=== PATIENT | male | born 2000 | race Caucasian/White ===

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

== ENCOUNTER 2022-11-11 06:34 | Emergency (ER) | payer OTHER ==
[2022-11-11 06:41] VITALS: RESP 18
[2022-11-11] MEDS ORDERED: diphenhydrAMINE 50 MG/ML 1 ML VIAL IVP STA (07:05)
[2022-11-11] MEDS ORDERED: DEXAMETHASONE SOD PHOSPHATE 10 MG/ML 1 ML VIAL IVP STA (07:05)
[2022-11-11] MEDS ORDERED: KETOROLAC 15 MG/ML 1 ML VIAL IVP STA (07:05)
--- NOTE | 2022-11-11 07:09 | ED ---
Neck Injury/Pain HPI - General Chief Complaint: Neck Pain/Injury Stated Complaint: Migraine, Neck Pain, Jaw tension Time Seen by Provider: 11/11/22 06:52 Source: patient, family, RN notes reviewed Mode of arrival: ambulatory Limitations: no limitations - History of Present Illness Initial Comments: This is a 21-year-old male who presents to the emergency department for neck pain and a headache. States that 4 days ago he developed left-sided neck pain that seems to be going up towards the ear. Also reports minor stiffness. Denies any fevers. He went to a chiropractor with no relief in symptoms. He took Aleve and a muscle relaxant which was not helpful. He has had problems with similar neck pain in the past, but states that it does not usually last this long. Denies any fevers, chills, or upper respiratory symptoms. His mom believes that he may be having a migraine, which he has had before and states that the symptoms feel similar. Denies any fevers, chills, sore throat, cough, dyspnea, chest pain, palpitations, abdominal pain, nausea, vomiting, or diarrhea. MD Complaint: neck pain Onset/Timin -: days(s) - Related Data Home Medications Medication Instructions Recorded Confirmed cloNIDine HCL [Catapres] 0.2 mg PO HS 04/25/14 10/31/16 ALPRAZolam [Xanax] 0.25 mg PO BID PRN 10/31/16 10/31/16 FLUoxetine HCL [PROzac] 40 mg PO HS 10/31/16 10/31/16 Methylphenidate HCl [Concerta] 54 mg PO QAM 10/31/16 10/31/16 guanFACINE HCL [Intuniv] 2 mg PO QAM 10/31/16 10/31/16 Previous Rx's Medication Instructions Recorded Ketorolac [Toradol] 10 mg PO Q6HR PRN #12 tab 11/11/22 Allergies Allergy/AdvReac Type Severity Reaction Status Date / Time No Known Allergies Allergy Verified 11/11/22 06:41 Review of Systems ROS Statement: Those systems with pertinent positive or pertinent negative responses have been documented in the HPI. ROS Other: All systems not noted in ROS Statement are negative. Past Medical History Past Medical History: No Reported History Additional Past Medical History / Comment(s): [employer] History of Any Multi-Drug Resistant Organisms: None Reported Additional Past Surgical History / Comment(s): TEAR DUCT SURGERY - AGE 4 Past Psychological History: ADD/ADHD, Depression, PTSD Smoking Status: Never smoker Past Alcohol Use History: None Reported Past Drug Use History: None Reported General Exam Limitations: no limitations General appearance: alert, in no apparent distress Head exam: Present: atraumatic, normocephalic, normal inspection ENT exam: Present: normal oropharynx, mucous membranes moist, TM's normal bilaterally, normal external ear exam Neck exam: Present: normal inspection, tenderness (Over the left trapezius muscle), full ROM. Absent: meningismus, lymphadenopathy Respiratory exam: Present: normal lung sounds bilaterally. Absent: respiratory distress, wheezes, rales, rhonchi, stridor Cardiovascular Exam: Present: regular rate, normal rhythm, normal heart sounds. Absent: systolic murmur, diastolic murmur, rubs, gallop, clicks Neurological exam: Present: alert, oriented X3, CN II-XII intact Psychiatric exam: Present: normal affect, normal mood Skin exam: Present: warm, dry, intact, normal color. Absent: rash Course Vital Signs 11/11/22 06:37 Temperature 97.8 F Pulse Rate 80 Respiratory 18 Rate Blood Pressure 100/68 O2 Sat by Pulse 97 Oximetry Medical Decision Making - Medical Decision Making This is a 21-year-old male who presents to the emergency department for neck pain. Was pt. sent in by a medical professional or institution? @ -No Did you speak to anyone other than the patient for history? @ -His mother provided the information regarding what medications he has been taking. Did you review nursing and triage notes? @ -Yes, and I agree, it is accurate with regards to the patient's symptoms. Were old charts reviewed? @ -No Differential Diagnosis? @ -Differential Neck Pain: Fracture, dislocation, contusion, strain, DDD, disc herniation, this is not meant to be an all-inclusive list. EKG interpreted by me (3pts min.)? @ -Not obtained X-rays interpreted by me (1pt min.)? @ -Not obtained CT interpreted by me (1pt min.)? @ -Not obtained U/S interpreted by me (1pt. min.)? @ -Not obtained What testing was considered but not performed? (CT, X-rays, U/S, labs)? Why? @ -There was consideration of an x-ray, however because he did not sustain any injuries and this was essentially an exacerbation of pain he has had before, this was avoided. What meds were considered but not given? Why? @ -None Did you discuss the management of the patient with other professionals? @ -No Did you reconcile home meds? @ -No Was smoking cessation discussed for >3mins.? @ -No Was critical care preformed (if so, how long)? @ -No Were there social determinants of health that impacted care today? How? (Homelessness, low income, unemployed, alcoholism, drug addiction, transportation, low edu. Level, literacy, decrease access to med. care, prison, rehab)? @ -No Was there de-escalation of care discussed even if they declined? (Discuss DNR or withdrawal of care, Hospice)? @ -No What co-morbidities impacted this encounter? (DM, HTN, Smoking, COPD, CAD, Cancer, CVA, Hep., AIDS, mental health diagnosis, sleep apnea, morbid obesity)? @ -Autism Was patient admitted / discharged? @ -Discharged. Symptoms more so consistent with a musculoskeletal process due to the tenderness over the trapezius muscle with associated tightness. Patient is also reproducible and increases with ROM. Discussed with his mother that we can treat him with Toradol, Decadron, and Benadryl. This will have an impact on musculoskeletal pain, as well a migraine, which was her concern. He reported some improvement in pain following the medications. Imaging was deferred as he did not sustain any injuries and this was essentially an exacerbation of pain he has had many times in the past. Advised the patient that he will need to take anti-inflammatories consistently over the next few days to help with these symptoms. Prescription for Toradol provided with dosing instructions reviewed. Patient is instructed to take the Toradol with Tylenol if needed and avoid any other [id number] anti-inflammatories such as ibuprofen with the Toradol. He can continue to take the muscle relaxant that he has at home as needed. Also advised warm moist heat and following up with his primary care provider. Undiagnosed new problem with uncertain prognosis? @ -None Drug Therapy requiring intensive monitoring for toxicity (Heparin, Nitro, Insulin, Cardizem)? @ -None Were any procedures done? @ -None Diagnosis/symptom? @ -Cervical strain Acute, or Chronic, or Acute on Chronic? @ -Acute Uncomplicated (without systemic symptoms) or Complicated (systemic symptoms)? @ -Uncomplicated Side effects of treatment? @ -None Exacerbation, Progression, or Severe Exacerbation] @ -Not applicable Poses a threat to life or bodily function? @ -No Return precautions reviewed in depth, the patient is instructed to return to the emergency department with any new, worsening, or concerning symptoms. Patient verbalized understanding. This case was discussed in detail with the attending ED physician, Dr. Patel. Presentation, findings, and treatment plan discussed in detail as well. Disposition Clinical Impression: Cervical strain Disposition: HOME SELF-CARE Instructions (If sedation given, give patient instructions): Cervical Strain (ED) Additional Instructions: Return to the emergency department with any new, worsening, or concerning symptoms. Take the Toradol consistently every 6 hours for the next 3 days. You may take this with Tylenol and your muscle relaxant. Do not take any other [id number] anti-inflammatories such as ibuprofen or Aleve with the Toradol. You may take these after finishing the Toradol. You can also apply warm moist heat. Follow up with your primary care provider in 1-2 days. Prescriptions: Ketorolac [Toradol] 10 mg PO Q6HR PRN #12 tab PRN Reason: Pain Is patient prescribed a controlled substance at d/c from ED?: No Referrals: Carolynn Oneill MD [Primary Care Provider] - 1-2 days
[2022-11-11] MEDS ORDERED: ORPHENADRINE 30 MG/ML 2 ML VIAL IVP STA (08:04)
[2022-11-11 08:56] VITALS: BP 109/71; PULSE 64; TEMP 97.6
== END 2022-11-11 08:56 | disposition home or self-care (01) ==
LOC: EC 06:34
DX: S16.1XXA Strain of muscle, fascia and tendon at neck level, initial encounter (principal); F32.A Depression, unspecified; F90.9 Attention-deficit hyperactivity disorder, unspecified type; Z79.899 Other long term (current) drug therapy; X58.XXXA Exposure to other specified factors, initial encounter
CPT/HCPCS: 99283; 96374; 96375 ×3; J1200; J1100; J2360; J1885

== ENCOUNTER 2023-08-22 16:09 | Emergency (ER) | payer OTHER ==
[2023-08-22 16:37] VITALS: BP 114/76; PULSE 63; RESP 16; TEMP 98
== END 2023-08-22 18:25 | disposition left against medical advice (07) ==
LOC: EC 16:09
DX: R07.89 Other chest pain (principal); Z53.21 Procedure and treatment not carried out due to patient leaving prior to being seen by health care provider
CPT/HCPCS: 93005; 99499

== ENCOUNTER 2023-09-09 11:24 | Emergency (ER) | payer OTHER ==
--- NOTE | 2023-09-09 12:20 | ED ---
Headache HPI - General Source: patient, RN notes reviewed Mode of arrival: ambulatory Limitations: no limitations <Kristen Flores - Last Filed: 09/09/23 12:19> <Corina Cameron - Last Filed: 09/09/23 14:39> - General Chief Complaint: Headache Stated Complaint: headache Time Seen by Provider: 09/09/23 11:44 - History of Present Illness Initial Comments: Quick Note-this is a 22-year-old male who presents emergency department chief complaint of right-sided headache over the past 4 days. Patient states that he saw his neurologist where he was started on Topamax to take every night over the past 4 days and states that he has had a worsening headache since then. Patient is unaware if he has ever had imaging of his head in the past. (Kristen Flores) 22-year-old male with history of migraines presenting with right-sided headache for the past 2 days. States that headache is throbbing and intermittent. Describes the pain as a 7 out of 10 currently. States the pain is mildly improved from 2 days ago however states this headache feels different than his other headaches. He takes Topamax for migraines which relieved symptoms mildly but pain persists. Denies nausea, vomiting, head trauma, numbness, tingling, weakness URI symptoms. He is tolerating orals well. (Corina Cameron) - Related Data Home Medications Medication Instructions Recorded Confirmed cloNIDine HCL [Catapres] 0.2 mg PO HS 04/25/14 10/31/16 ALPRAZolam [Xanax] 0.25 mg PO BID PRN 10/31/16 10/31/16 FLUoxetine HCL [PROzac] 40 mg PO HS 10/31/16 10/31/16 Methylphenidate HCl [Concerta] 54 mg PO QAM 10/31/16 10/31/16 guanFACINE HCL [Intuniv] 2 mg PO QAM 10/31/16 10/31/16 Previous Rx's Medication Instructions Recorded Ketorolac [Toradol] 10 mg PO Q6HR PRN #12 tab 11/11/22 Allergies Allergy/AdvReac Type Severity Reaction Status Date / Time No Known Allergies Allergy Verified 09/09/23 11:48 Review of Systems ROS Other: All systems not noted in ROS Statement are negative. <Kristen Flores - Last Filed: 09/09/23 12:19> ROS Other: All systems not noted in ROS Statement are negative. <Corina Cameron - Last Filed: 09/09/23 14:39> ROS Statement: Those systems with pertinent positive or pertinent negative responses have been documented in the HPI. 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 Absent: scleral icterus, conjunctival injection, periorbital swelling Pupils: Present: normal accommodation ENT exam: Present: normal exam, mucous membranes moist Neck exam: Present: normal inspection (No neck stiffness, negative Brudzinski's and negative Kernig's). Absent: tenderness, meningismus, lymphadenopathy Respiratory exam: Present: normal lung sounds bilaterally. Absent: respiratory distress, wheezes, rales, rhonchi, stridor Cardiovascular Exam: Present: regular rate, normal rhythm, normal heart sounds. Absent: systolic murmur, diastolic murmur, rubs, gallop, clicks Neurological exam: Present: alert, oriented X3, CN II-XII intact Psychiatric exam: Present: normal affect, normal mood <Corina Cameron - Last Filed: 09/09/23 14:39> - General Exam Comments Initial Comments: Visual Physical Exam Vital signs reviewed General: Well-appearing, nontoxic, no acute distress. Head: Normocephalic, atraumatic Eyes: PERRLA, EOMI ENT: Airway patent Chest: Nonlabored breathing Skin: No visual rash, normal skin tone Neuro: Alert and oriented 3 Musculoskeletal: No gross abnormalities (Stieler,Kristen) Course Vital Signs 09/09/23 11:44 Temperature 97.8 F Pulse Rate 78 Respiratory 18 Rate Blood Pressure 116/73 O2 Sat by Pulse 99 Oximetry Medical Decision Making <Kristen Flores - Last Filed: 09/09/23 12:19> <Corina Cameron - Last Filed: 09/09/23 14:39> - Medical Decision Making I completed the quick note portion of this chart signed Kristen Flores PA-C (Kristen Flores) Was pt. sent in by a medical professional or institution (BRIGITTE Foote, MOLECULAR BIOLOGY DIRECTOR, urgent care, hospital, or senior care...) When possible be specific @ -No Did you speak to anyone other than the patient for history (EMS, parent, family, police, friend...)? What history was obtained from this source @ -No Did you review nursing and triage notes (agree or disagree)? Why? @ -I reviewed and agree with nursing and triage notes Were old charts reviewed (outside hosp., previous admission, EMS record, old EKG, old radiological studies, urgent care reports/EKG's, senior care records)? Report findings @ -No old charts were reviewed Differential Diagnosis (chest pain, altered mental status, abdominal pain women, abdominal pain men, vaginal bleeding, weakness, fever, dyspnea, syncope, headache, dizziness, GI bleed, back pain, seizure, CVA, palpatations, mental health, musculoskeletal)? @ -Differential Headache: Migraine, tension, cluster, carbon monoxide, central venous thrombosis, pension karma temporal arteritis, acute closure glaucoma, intercranial hemorrhage, mastoiditis, sinusitis, head injury, this is not meant to be an all-inclusive list. EKG interpreted by me (3pts min.). @ -None X-rays interpreted by me (1pt min.). @ -None done CT interpreted by me (1pt min.). @ -CT revealed no acute intracranial process U/S interpreted by me (1pt. min.). @ -None done What testing was considered but not performed or refused? (CT, X-rays, U/S, labs)? Why? @ -None What meds were considered but not given or refused? Why? @ -None Did you discuss the management of the patient with other professionals (professionals i.e. BRIGITTE Foote, MOLECULAR BIOLOGY DIRECTOR, lab, RT, psych nurse, high school social science teacher, vba developer, teacher, disabilities services officer, case therapist)? Give summary @ -No Was smoking cessation discussed for >3mins.? @ -No Was critical care preformed (if so, how long)? @ -No Were there social determinants of health that impacted care today? How? (H omelessness, low income, unemployed, alcoholism, drug addiction, transportation, low edu. Level, literacy, decrease access to med. care, halfway, rehab)? @ -No Was there de-escalation of care discussed even if they declined (Discuss DNR or withdrawal of care, Hospice)? DNR status @ -No What co-morbidities impacted this encounter? (DM, HTN, Smoking, COPD, CAD, Cancer, CVA, ARF, Chemo, Hep., AIDS, mental health diagnosis, sleep apnea, morbid obesity)? @ -None Was patient admitted / discharged? Hospital course, mention meds given and route, prescriptions, significant lab abnormalities, going to OR and other pertinent info. @ -Patient was discharged. Patient was seen and evaluated for migraine. Vitals and neuro examination was unremarkable. CT head obtained due to sensation of headache feeling different than previous migraines, CT was unremarkable for intracranial process. Pain was controlled with Toradol, Reglan, and Benadryl. Patient was given IV fluids. Upon reexamination, patient states symptoms have resolved. Supportive treatment discussed. Return symptoms discussed. Patient discharged in stable condition. Case discussed with Dr. Dupont. Undiagnosed new problem with uncertain prognosis? @ -No Drug Therapy requiring intensive monitoring for toxicity (Heparin, Nitro, Insulin, Cardizem)? @ -No Were any procedures done? @ -No Diagnosis/symptom? @ -Migraine headache Acute, or Chronic, or Acute on Chronic? @ -Acute Uncomplicated (without systemic symptoms) or Complicated (systemic symptoms)? @ -Uncomplicated Side effects of treatment? @ -No Exacerbation, Progression, or Severe Exacerbation? @ -No Poses a threat to life or bodily function? How? (Chest pain, [place], [place], pneumonia, PE, COPD, DKA, ARF, appy, cholecystitis, CVA, Diverticulitis, Homicidal, Suicidal, threat to staff... and all critical care pts) @ -No (Corina Cameron) Disposition <Kristen Flores - Last Filed: 09/09/23 12:19> Is patient prescribed a controlled substance at d/c from ED?: No Time of Disposition: 14:39 <Corina Cameron - Last Filed: 09/09/23 14:39> Clinical Impression: Migraine headache Disposition: HOME SELF-CARE Condition: Stable Additional Instructions: Please return to the Emergency Department if symptoms worsen or any other concerns. Referrals: Carolynn Oneill MD [Primary Care Provider] - 1-2 days
[2023-09-09] MEDS: diphenhydrAMINE 50 MG/ML 1 ML VIAL IVP STA (13:41)
[2023-09-09] MEDS: KETOROLAC 15 MG/ML 1 ML VIAL IVP STA (13:43)
[2023-09-09] MEDS: METOCLOPRAMIDE 5 MG/ML 2 ML VIAL IVP STA (13:43)
[2023-09-09] MEDS: SODIUM CHLORIDE 0.9% 1,000 ML IV STA (13:47)
--- NOTE | 2023-09-09 13:48 | CT ---
EXAMINATION TYPE: CT brain wo con CT DLP: 1109.4 mGycm, Automated exposure control for dose reduction was used. DATE OF EXAM: 09/09/2023 12:51 PM COMPARISON: 04/24/2017 CLINICAL INDICATION:Male, 22 years old with history of headache, Headache TECHNIQUE: Brain: Axial CT images of the brain were obtained with coronal and sagittal reformats created and rev iewed. Contrast used: None. Oral contrast used: None. FINDINGS: Brain: Extra-axial spaces: No abnormal extra-axial fluid collections. Ventricular system: Within normal limits Cerebral parenchyma: No acute intraparenchymal hemorrhage or mass effect. The sargent-white junction is well differentiated. Cerebellum: Unremarkable. Mass effect: No evidence of midline shift. Intracranial vasculature: unremarkable Soft tissues: Normal. Calvarium/osseous structures: No depressed skull fracture. Paranasal sinuses and mastoid air cells: Mild scattered paranasal sinus disease. Visualized orbits: Orbital contents are intact. IMPRESSION: No acute intracranial process.
[2023-09-09 15:09] VITALS: BP 104/56; PULSE 70; RESP 16; TEMP 98.9
== END 2023-09-09 15:10 | disposition home or self-care (01) ==
LOC: EC 11:24
DX: G43.909 Migraine, unspecified, not intractable, without status migrainosus (principal)
CPT/HCPCS: 70450; 99283; 96374; 96375 ×2; 96361; J1200; J2765; J1885